=== PATIENT | female | born 1955 | race Caucasian/White ===

== ENCOUNTER → 2018-12-23 | Outpatient (CLI) | payer MEDICARE, OTHER ==
--- NOTE | 2018-12-23 14:29 | Diagnostic Imaging Report ---
Indication: Right shoulder pain 4 views of the right shoulder show no fracture, dislocation or other acute abnormalities. Impression: Negative right shoulder Dictated by: Dictated on workstation # [id number]
== END ==
LOC: RAD FS 14:13
PROVIDERS: ATTEND Nurse Practitioner
DX: M25.511 Pain in right shoulder (principal)
CPT/HCPCS: 73030

== ENCOUNTER 2019-06-19 07:02 | Emergency (ER) | payer MEDICARE, OTHER ==
[~2019-06-19] VITALS: Ht 154.9 cm; Wt 94.2 kg
--- NOTE | 2019-06-19 07:41 | ED General ---
General Stated Complaint: WEAKNESS,DIZZY Source of Information: Patient Exam Limitations: No Limitations History of Present Illness Date Seen by Provider: Jun 19, 2019 Time Seen by Provider: 07:36 Initial Comments Patient complains of dizziness and trouble walking for the past 2 weeks. She actually fell 2 weeks ago and hit her side on the floor. She complains of left rib pain. She has not fallen since. She was more dizzy today. She has been sick for the past week with a cough productive of green sputum. She denies fevers or chills. No headache. Allergies and Home Medications Allergies Coded Allergies: ciprofloxacin (Unverified Adverse Reaction, Unknown, 06/19/19) Patient Home Medication List Home Medication List Reviewed: Yes Review of Systems Review of Systems Constitutional: dizziness; No fever; malaise EENTM: nose congestion Respiratory: cough Cardiovascular: chest pain Gastrointestinal: no symptoms reported Skin: no symptoms reported Psychiatric/Neurological: No Symptoms Reported Hematologic/Lymphatic: No Symptoms Reported All Other Systems Reviewed Negative Unless Noted: Yes Past Yesneim-Ijbthl-Rohhkp Hx Patient Social History Alcohol Use: Denies Use Physical Exam Vital Signs Vital Signs - First Documented 06/19/19 07:10 Temp 37.0 Pulse 103 Resp 18 B/P (MAP) 141/63 (89) Pulse Ox 93 O2 Delivery Room Air Capillary Refill : Height, Weight, BMI Height: '" Weight: lbs. oz. kg; BMI Method: General Appearance: No Apparent Distress, WD/WN, Obese Eyes: Bilateral Eye Normal Inspection, Bilateral Eye PERRL, Bilateral Eye EOMI, Bilateral Eye Other (horizontal nystagmus) HEENT: PERRL/EOMI, Pharynx Normal Neck: Supple Respiratory: Lungs Clear, Normal Breath Sounds Cardiovascular: Regular Rate, Rhythm, No Edema Gastrointestinal: Non Tender, Soft Extremity: Normal Range of Motion Neurologic/Psychiatric: Alert, No Motor/Sensory Deficits, Normal Mood/Affect Skin: Normal Color, Warm/Dry Progress/Results/Core Measures Suspected Sepsis SIRS Temperature: Pulse: Respiratory Rate: Laboratory Tests 06/19/19 07:35: White Blood Count 12.7H Blood Pressure / Mean: Laboratory Tests 06/19/19 07:35: Creatinine 0.59L, Platelet Count 234, Total Bilirubin 0.4 Results/Orders Lab Results Laboratory Tests Test 06/19/19 07:25 06/19/19 07:35 Range/Units Urine Color YELLOW Urine Clarity CLOUDY H Urine pH 7.5 5-9 Urine Specific Crouse 1.020 1.016-1.022 Urine Protein NEGATIVE NEGATIVE Urine Glucose (UA) 3+ H NEGATIVE Urine Ketones TRACE H NEGATIVE Urine Nitrite POSITIVE H NEGATIVE Urine Bilirubin NEGATIVE NEGATIVE Urine Urobilinogen 0.2 NORMAL MG/DL Urine Leukocyte Esterase 2+ H NEGATIVE Urine RBC (Auto) NEGATIVE NEGATIVE Urine RBC NONE /HPF Urine WBC >100 H /HPF Urine Squamous Epithelial Cells RARE /HPF Urine Crystals NONE /LPF Urine Bacteria LARGE H /HPF Urine Casts NONE /LPF Urine Mucus NEGATIVE /LPF Urine Culture Indicated YES White Blood Count 12.7 H 4.3-11.0 10^3/uL Red Blood Count 3.93 L 4.35-5.85 10^6/uL Hemoglobin 12.4 11.5-16.0 G/DL Hematocrit 36 35-52 % Mean Corpuscular Volume 92 80-99 FL Mean Corpuscular Hemoglobin 32 25-34 PG Mean Corpuscular Hemoglobin Concent 34 32-36 G/DL Red Cell Distribution Width 12.2 10.0-14.5 % Platelet Count 234 130-400 10^3/uL Mean Platelet Volume 10.0 7.4-10.4 FL Neutrophils (%) (Auto) 81 H 42-75 % Lymphocytes (%) (Auto) 7 L 12-44 % Monocytes (%) (Auto) 8 0-12 % Eosinophils (%) (Auto) 3 0-10 % Basophils (%) (Auto) 0 0-10 % Neutrophils # (Auto) 10.3 H 1.8-7.8 X 10^3 Lymphocytes # (Auto) 0.9 L 1.0-4.0 X 10^3 Monocytes # (Auto) 1.0 0.0-1.0 X 10^3 Eosinophils # (Auto) 0.3 0.0-0.3 10^3/uL Basophils # (Auto) 0.0 0.0-0.1 10^3/uL Neutrophils % (Manual) 70 % Lymphocytes % (Manual) 8 % Monocytes % (Manual) 6 % Eosinophils % (Manual) 2 % Band Neutrophils 14 % Blood Morphology Comment NORMAL Sodium Level 131 L 135-145 MMOL/L Potassium Level 4.6 3.6-5.0 MMOL/L Chloride Level 93 L 98-107 MMOL/L Carbon Dioxide Level 25 21-32 MMOL/L Anion Gap 13 5-14 MMOL/L Blood Urea Nitrogen 16 7-18 MG/DL Creatinine 0.59 L 0.60-1.30 MG/DL Estimat Glomerular Filtration Rate > 60 BUN/Creatinine Ratio 27 Glucose Level 333 H 70-105 MG/DL Calcium Level 9.9 8.5-10.1 MG/DL Corrected Calcium 9.8 8.5-10.1 MG/DL Magnesium Level 1.6 1.6-2.4 MG/DL Total Bilirubin 0.4 0.1-1.0 MG/DL Aspartate Amino Transf (AST/SGOT) 27 5-34 U/L Alanine Aminotransferase (ALT/SGPT) 32 0-55 U/L Alkaline Phosphatase 98 40-136 U/L Troponin I < 0.30 <0.30 NG/ML Total Protein 7.4 6.4-8.2 GM/DL Albumin 4.1 3.2-4.5 GM/DL My Orders Orders - VY LEHMAN MD Cbc With Automated Diff (06/19/19 07:20) Comprehensive Metabolic Panel (06/19/19 07:20) Magnesium (06/19/19 07:20) Ua Culture If Indicated (06/19/19 07:20) Troponin I (06/19/19 07:20) Ekg Tracing (06/19/19 07:20) Chest 1 View Ap/Pa Only (06/19/19 07:20) Meclizine Tablet (Antivert Tablet) (06/19/19 07:45) Ct Head Wo (06/19/19 07:42) Urine Culture (06/19/19 07:25) Manual Differential (06/19/19 07:35) Ceftriaxone For Iv Use (Rocephin For I (06/19/19 08:45) Insulin (Regular) Human (Humulin R (Per (06/19/19 08:45) Medications Given in ED Current Medications Medications Dose Ordered Sig/Santiago Route Start Time Stop Time Status Last Admin Dose Admin Meclizine HCl 25 mg ONCE ONCE PO 06/19/19 07:45 06/19/19 07:46 DC 06/19/19 08:13 25 MG Vital Signs/I&O 06/19/19 07:10 Temp 37.0 Pulse 103 Resp 18 B/P (MAP) 141/63 (89) Pulse Ox 93 O2 Delivery Room Air Capillary Refill : Departure Impression Primary Impression: Dizziness Additional Impression: UTI (urinary tract infection) Disposition: 01 HOME, SELF-CARE Condition: Stable Departure-Patient Inst. Decision time for Depature: 08:46 Referrals: HANK PAUL MD (PCP/Family) Primary Care Physician Patient Instructions: Urinary Tract Infection, Adult (DC) Add. Discharge Instructions: Drinking fluids. Acetaminophen or Ibuprofen for pain or fever. Take antibiotics as prescribed. See her doctor later this week for follow-up. Scripts Levofloxacin (Levaquin) 500 Mg Tablet 500 MG PO DAILY, #5 TAB Prov: VY LEHMAN MD 06/19/19 VY LEHMAN MD Jun 19, 2019 07:41
[2019-06-19] MEDS ORDERED: MECLIZINE 25 MG (ANTIVERT) TAB PO ONE (07:45)
[2019-06-19 07:57] LABS: CLARITY,URINE CLOUDY; COLOR,URINE YELLOW; GLUCOSE, URINE (UA) 3+ (NEGATIVE); PH,URINE 7.5 (5-9); PROTEIN,URINE NEGATIVE (NEGATIVE)
[2019-06-19 07:58] LABS: BACTERIA,URINE LARGE /HPF; BILIRUBIN,URINE NEGATIVE (NEGATIVE); KETONES,URINE TRACE (NEGATIVE); LEUKOCYTE ESTERASE ,URINE 2+ (NEGATIVE); NITRITE,URINE POSITIVE (NEGATIVE); SQUAMOUS EPITHELIAL CELL,UR RARE /HPF; UROBILINOGEN,URINE 0.2 MG/DL (NORMAL); WBC,URINE >100 /HPF
[2019-06-19 07:59] LABS: HEMATOCRIT 36 % (35-52); HEMOGLOBIN 12.4 G/DL (11.5-16.0); MEAN CORPUSCULAR HEMOGLOBIN 32 PG (25-34); WHITE BLOOD COUNT 12.7 10^3/uL (4.3-11.0)
[2019-06-19 08:00] LABS: BASOPHILS % (AUTO) 0 % (0-10); EOSINOPHILS # (AUTO) 0.3 10^3/uL (0.0-0.3); EOSINOPHILS % (AUTO) 3 % (0-10); LYMPHOCYTES # (AUTO) 0.9 X 10^3 (1.0-4.0); LYMPHOCYTES % (AUTO) 7 % (12-44); MEAN CORPUSCULAR HGB CONC 34 G/DL (32-36); MEAN CORPUSCULAR VOLUME 92 FL (80-99); MONOCYTES % (AUTO) 8 % (0-12); NEUTROPHILS # (AUTO) 10.3 X 10^3 (1.8-7.8); NEUTROPHILS % (AUTO) 81 % (42-75); PLATELET COUNT 234 10^3/uL (130-400); RED CELL DISTRIBUTION WIDTH 12.2 % (10.0-14.5)
[2019-06-19 08:11] LABS: BILIRUBIN,TOTAL 0.4 MG/DL (0.1-1.0); BUN/CREATININE RATIO 27; CALCIUM 9.9 MG/DL (8.5-10.1); CARBON DIOXIDE 25 MMOL/L (21-32); CHLORIDE 93 MMOL/L (98-107); CREATININE SERUM 0.59 MG/DL (0.60-1.30); GFR ESTIMATED > 60; GLUCOSE 333 MG/DL (70-105); MAGNESIUM 1.6 MG/DL (1.6-2.4); POTASSIUM 4.6 MMOL/L (3.6-5.0); SODIUM 131 MMOL/L (135-145)
[2019-06-19 08:12] LABS: ALANINE AMINOTRANSFERASE 32 U/L (0-55); ALBUMIN 4.1 GM/DL (3.2-4.5); ALKALINE PHOSPHATASE 98 U/L (40-136); TOTAL PROTEIN 7.4 GM/DL (6.4-8.2)
[2019-06-19 08:19] LABS: BAND NEUTROPHILS 14 %; NEUTROPHILS % (MANUAL) 70 %
[2019-06-19 08:20] LABS: EOSINOPHILS % (MANUAL) 2 %; LYMPHOCYTES % (MANUAL) 8 %; MONOCYTES % (MANUAL) 6 %; RBC MORPH NORMAL
--- NOTE | 2019-06-19 08:22 | Diagnostic Imaging Report ---
EXAM: CHEST 1 VIEW AP/PA ONLY INDICATION: Dizziness and weakness. COMPARISON: None. FINDINGS: Mild bibasilar atelectasis or infiltrate. Normal heart size with normal central pulmonary vascularity. Calcified aorta. No pleural effusion or pneumothorax. No acute osseous findings. IMPRESSION: Mild bibasilar atelectasis or infiltrate. Remainder unremarkable. Dictated by: Dictated on workstation # [id number]
--- NOTE | 2019-06-19 08:23 | Diagnostic Imaging Report ---
PROCEDURE: CT head without contrast. TECHNIQUE: Multiple contiguous axial images were obtained through the brain without the use of intravenous contrast. Auto Exposure Controls were utilized during the CT exam to meet ALARA standards for radiation dose reduction. INDICATION: Dizziness. Weakness. COMPARISON: None. FINDINGS: Moderate generalized cerebral and cerebellar parenchymal volume loss. No intracranial hemorrhage, mass effect, hydrocephalus or extra-axial fluid collections. No CT evidence of a territorial infarction. Osseous structures are intact. The visualized paranasal sinuses and mastoids are clear. IMPRESSION: No acute intracranial CT findings. Dictated by: Dictated on workstation # [id number]
[2019-06-19] MEDS ORDERED: cefTRIAXone FOR IV USE 2,000 MG in WATER (STERILE) FOR INJECTION 20 ML IV ONE (08:45)
[2019-06-19] MEDS ORDERED: inSUlin (REGULAR) HUMAN 1 UNIT/0.01 ML (CHARGE PER UNIT) SC ONE (08:45)
[2019-06-19] MEDS ORDERED: LEVO500T2 PO (08:47)
[2019-06-19 09:17] VITALS: BP 130/61
== END 2019-06-19 09:17 | disposition home or self-care (01) ==
LOC: EDUNIT# 07:02 → ER FS 07:04
DX: R42 Dizziness and giddiness (principal); N39.0 Urinary tract infection, site not specified; Z88.1 Allergy status to other antibiotic agents; W01.198A Fall on same level from slipping, tripping and stumbling with subsequent striking against other object, initial encounter
CPT/HCPCS: 36415; 70450; 71045; 80053; 81000; 83735; 84484; 85007; 85027; 87077; 87088; 87186; 93005

== ENCOUNTER → 2020-01-12 | Outpatient (CLI) | payer MEDICARE ==
[~2020-01-12] MED LIST: LEVO500T2 PO
--- NOTE | 2020-01-12 10:26 | Diagnostic Imaging Report ---
INDICATION: Right knee pain. COMPARISON: None available. TECHNIQUE: Three radiograph of the right knee dated January 12, 2020. FINDINGS: No acute fracture or dislocation. No destructive osseous process. Moderate medial joint space narrowing. Mild tricompartmental osteophytosis. No significant joint effusion. No suspicious radiopaque foreign body. IMPRESSION: No acute osseous abnormality with hpya-hj-uxtewcoo degenerative changes. Dictated by: Dictated on workstation # [id number]
== END ==
LOC: RAD FS 09:49
PROVIDERS: ATTEND Nurse Practitioner
DX: M17.11 Unilateral primary osteoarthritis, right knee (principal)
CPT/HCPCS: 73562

== ENCOUNTER 2020-06-28 15:42 | Emergency (ER) | payer MEDICARE ==
[~2020-06-28] VITALS: Ht 157 cm; Wt 110.0 kg
[2020-06-28] MEDS ORDERED: NS IV 1000 ML 1,000 ML IV SCH (16:00)
--- NOTE | 2020-06-28 16:03 | ED GI ---
General Stated Complaint: NO BM Source of Information: Patient Exam Limitations: No Limitations History of Present Illness Date Seen by Provider: Jun 28, 2020 Time Seen by Provider: 15:50 Initial Comments The patient is a pleasant 65-year-old female who presents for evaluation of constipation over the last 2 weeks. She states that she normally has a bowel movement every 3 days or so. She tried Dulcolax and MiraLAX and a Fleet enema at home with no relief. She denies any nausea, vomiting, or any significant abdominal discomfort. She is alert and oriented 4, calm, and appears to be in no distress. She denies fevers or chills, chest pain or shortness of breath, rectal pain, urinary complaints, dizziness or syncope. She denies any history of abdominal surgeries. Timing/Duration: Other (2 weeks) Severity/Quality: Moderate Location: Generalized Abdomen (mild cramping and rectal fullness) Associated Symptoms: Denies Symptoms Allergies and Home Medications Allergies Coded Allergies: ciprofloxacin (Unverified Adverse Reaction, Unknown, 06/19/19) Home Medications Levofloxacin 500 Mg Tablet, 500 MG PO DAILY Prescribed by: VY LEHMAN on 06/19/19 0807 Patient Home Medication List Home Medication List Reviewed: Yes Review of Systems Review of Systems Constitutional: no symptoms reported EENTM: No Symptoms Reported Respiratory: No Symptoms Reported Cardiovascular: No Symptoms Reported Gastrointestinal: Abdominal Pain, Constipated Genitourinary: No Symptoms Reported Musculoskeletal: no symptoms reported Skin: no symptoms reported Psychiatric/Neurological: No Symptoms Reported Endocrine: No Symptoms Reported Hematologic/Lymphatic: No Symptoms Reported All Other Systems Reviewed Negative Unless Noted: Yes Past Ixrsnnz-Aewmak-Jtahue Hx Past Med/Social Hx: Reviewed Nursing Past Med/Soc Hx Patient Social History Type Used: Cigarettes Former Smoker, Quit: Oct 05, 2006 2nd Hand Smoke Exposure: No Recent Foreign Travel: No Contact w/Someone Who Travel: No Recent Hopitalizations: No Immunizations Up To Date Tetanus Booster (TDap): Unknown Date of Pneumonia Vaccine: Jun 17, 2019 Date of Influenza Vaccine: Jun 17, 2019 Seasonal Allergies Seasonal Allergies: Yes Past Medical History Surgeries: Yes (Lithotripsy, Colonoscopy) Hysterectomy Respiratory: No Cardiac: Yes (Paroxysmal supraventricular tachycardia) High Cholesterol, Hypertension, Irregular Heartbeat 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 oz. kg; 39.00 BMI Method: General Appearance: WD/WN, no apparent distress HEENT: PERRL/EOMI, pharynx normal Neck: non-tender, normal inspection Respiratory: lungs clear, no respiratory distress, no accessory muscle use Cardiovascular: regular rate, rhythm, no edema, no JVD, no murmur Gastrointestinal: normal bowel sounds, non tender, soft, no pulsatile mass Extremities: non-tender, no pedal edema Neurologic/Psychiatric: no motor/sensory deficits, alert, normal mood/affect, oriented x 3 Skin: normal color, warm/dry Progress/Results/Core Measures Results/Orders Lab Results Laboratory Tests Test 06/28/20 16:02 Range/Units White Blood Count 8.0 4.3-11.0 10^3/uL Red Blood Count 4.16 L 4.35-5.85 10^6/uL Hemoglobin 13.1 11.5-16.0 G/DL Hematocrit 39 35-52 % Mean Corpuscular Volume 95 80-99 FL Mean Corpuscular Hemoglobin 31 25-34 PG Mean Corpuscular Hemoglobin Concent 33 32-36 G/DL Red Cell Distribution Width 13.7 10.0-14.5 % Platelet Count 224 130-400 10^3/uL Mean Platelet Volume 9.5 7.4-10.4 FL Neutrophils (%) (Auto) 66 42-75 % Lymphocytes (%) (Auto) 19 12-44 % Monocytes (%) (Auto) 10 0-12 % Eosinophils (%) (Auto) 4 0-10 % Basophils (%) (Auto) 1 0-10 % Neutrophils # (Auto) 5.3 1.8-7.8 X 10^3 Lymphocytes # (Auto) 1.5 1.0-4.0 X 10^3 Monocytes # (Auto) 0.8 0.0-1.0 X 10^3 Eosinophils # (Auto) 0.3 0.0-0.3 10^3/uL Basophils # (Auto) 0.0 0.0-0.1 10^3/uL Sodium Level 137 135-145 MMOL/L Potassium Level 4.1 3.6-5.0 MMOL/L Chloride Level 101 98-107 MMOL/L Carbon Dioxide Level 20 L 21-32 MMOL/L Anion Gap 16 H 5-14 MMOL/L Blood Urea Nitrogen 11 7-18 MG/DL Creatinine 0.65 0.60-1.30 MG/DL Estimat Glomerular Filtration Rate > 60 BUN/Creatinine Ratio 17 Glucose Level 230 H 70-105 MG/DL Calcium Level 10.4 H 8.5-10.1 MG/DL Corrected Calcium 10.2 H 8.5-10.1 MG/DL Total Bilirubin 0.2 0.1-1.0 MG/DL Aspartate Amino Transf (AST/SGOT) 39 H 5-34 U/L Alanine Aminotransferase (ALT/SGPT) 41 0-55 U/L Alkaline Phosphatase 80 40-136 U/L Total Protein 7.6 6.4-8.2 GM/DL Albumin 4.3 3.2-4.5 GM/DL My Orders Orders - JESE SWANN DO Cbc With Automated Diff (06/28/20 15:46) Comprehensive Metabolic Panel (06/28/20 15:46) Ed Iv/Invasive Line Start (06/28/20 15:46) Abdomen (Kub) 1 View (06/28/20 15:54) Ns Iv 1000 Ml (Sodium Chloride 0.9%) (06/28/20 16:00) Magnesium Citrate Oral Soln (Citrate Of (06/28/20 16:30) Na Phos/Na Biphos Enema (Fleet Enema Miles (06/28/20 16:30) Vital Signs/I&O 06/28/20 16:07 Temp 36.0 Pulse 101 Resp 18 B/P (MAP) 152/64 (93) Pulse Ox 96 O2 Delivery Room Air Progress Progress Note : Progress Note @6377 - after receiving the enema the patient was able to have a large bowel movement and now is feeling much better. Advised the patient that her labs showed a slightly elevated calcium level and that this is important to be followed up with her primary care doctor and needs to be repeated. Advised the patient to follow up with her PCP within the next 2-3 days and to return to the emergency Department immediately for new or worsening symptoms. The patient expresses verbal understanding and agreement with the plan and is stable for discharge at this time. Diagnostic Imaging Diagonstic Imaging: Xray Comments [facility] the [employer] [facility] [place], [place] NAME: REI CALDERA [facility] REC#: [id number] PT STATUS: REG ER : 1955 PHYSICIAN: JESE SWANN DO ADMIT DATE: 06/28/20/ER FS Draft Date of Exam:06/28/20 ABDOMEN (KUB) 1 VIEW INDICATION: Obstipation COMPARISON: None FINDINGS: 2 frontal Views the abdomen were obtained and demonstrate nondistended loops of small bowel. There is no large collection of free peritoneal air. Moderate air and stool are seen scattered throughout the colon. No unexpected extraosseous calcifications or radiopaque foreign bodies are seen. Bony structures show no gross acute abnormalities. IMPRESSION: 1. Nonobstructed small bowel gas pattern. 2. Moderate colonic air and stool. Please correlate for constipation Dictated on workstation # [id number] Dict: 06/28/20 1619 Trans: 06/28/20 1624 CV [id number] Interpreted by: LESLIE LEIVA MD Electronically signed by: Departure Impression Primary Impression: Constipation Additional Impression: Hypercalcemia Disposition: 01 HOME, SELF-CARE Condition: Stable Departure-Patient Inst. Decision time for Depature: 16:48 Referrals: SELFHANK MD (PCP/Family) Primary Care Physician Patient Instructions: Constipation, Adult (DC), Hypercalcemia (DC) Add. Discharge Instructions: As discussed your calcium level was slightly elevated today and it is important that he follow-up with your doctor to have this level repeated to make sure that it is coming down. Follow-up with your doctor in the next 2-3 days. Return to the emergency Department immediately for new or worsening symptoms. Continue to take the stool softening medications you have been taking recently to help prevent constipation future. Also continue to drink plenty of water to stay well-hydrated. Discuss with your doctor whether you should be taking trazodone as this is a new medication which may be contributing to your constipation. JESE SWANN DO Jun 28, 2020 16:03
[2020-06-28 16:09] LABS: HEMOGLOBIN 13.1 G/DL (11.5-16.0); MEAN CORPUSCULAR HEMOGLOBIN 31 PG (25-34)
[2020-06-28 16:10] LABS: BASOPHILS % (AUTO) 1 % (0-10); EOSINOPHILS # (AUTO) 0.3 10^3/uL (0.0-0.3); EOSINOPHILS % (AUTO) 4 % (0-10); HEMATOCRIT 39 % (35-52); LYMPHOCYTES # (AUTO) 1.5 X 10^3 (1.0-4.0); LYMPHOCYTES % (AUTO) 19 % (12-44); MEAN CORPUSCULAR HGB CONC 33 G/DL (32-36); MEAN CORPUSCULAR VOLUME 95 FL (80-99); MEAN PLATELET VOLUME 9.5 FL (7.4-10.4); MONOCYTES # (AUTO) 0.8 X 10^3 (0.0-1.0); MONOCYTES % (AUTO) 10 % (0-12); NEUTROPHILS # (AUTO) 5.3 X 10^3 (1.8-7.8); NEUTROPHILS % (AUTO) 66 % (42-75); PLATELET COUNT 224 10^3/uL (130-400)
--- NOTE | 2020-06-28 16:24 | Diagnostic Imaging Report ---
INDICATION: Obstipation COMPARISON: None FINDINGS: 2 frontal Views the abdomen were obtained and demonstrate nondistended loops of small bowel. There is no large collection of free peritoneal air. Moderate air and stool are seen scattered throughout the colon. No unexpected extraosseous calcifications or radiopaque foreign bodies are seen. Bony structures show no gross acute abnormalities. IMPRESSION: 1. Nonobstructed small bowel gas pattern. 2. Moderate colonic air and stool. Please correlate for constipation Dictated by: Dictated on workstation # [id number]
[2020-06-28] MEDS ORDERED: polyethylene glycoL POWDER 17 GM (MIRALAX) PACK PO ONE (16:30)
[2020-06-28] MEDS ORDERED: MAGNESIUM CITRATE 300 ML BTL PO ONE (16:30)
[2020-06-28] MEDS ORDERED: FLEET ENEMA ADULT 1 EA BTL PR ONE (16:30)
[2020-06-28 16:33] LABS: ALANINE AMINOTRANSFERASE 41 U/L (0-55); ALBUMIN 4.3 GM/DL (3.2-4.5); ALKALINE PHOSPHATASE 80 U/L (40-136); BILIRUBIN,TOTAL 0.2 MG/DL (0.1-1.0); BUN/CREATININE RATIO 17; CALCIUM 10.4 MG/DL (8.5-10.1); CARBON DIOXIDE 20 MMOL/L (21-32); CHLORIDE 101 MMOL/L (98-107); CREATININE SERUM 0.65 MG/DL (0.60-1.30); GFR ESTIMATED > 60; GLUCOSE 230 MG/DL (70-105); POTASSIUM 4.1 MMOL/L (3.6-5.0); SODIUM 137 MMOL/L (135-145); TOTAL PROTEIN 7.6 GM/DL (6.4-8.2)
[2020-06-28 17:01] VITALS: BP 138/62
== END 2020-06-28 17:05 | disposition home or self-care (01) ==
LOC: EDUNIT# 15:42 → ER FS 15:43
DX: K59.00 Constipation, unspecified (principal); E83.52 Hypercalcemia; I10 Essential (primary) hypertension; Z88.1 Allergy status to other antibiotic agents; Z87.891 Personal history of nicotine dependence
CPT/HCPCS: 36415; 74018; 80053; 85025

== ENCOUNTER 2021-01-15 11:01 | Emergency (ER) | payer MEDICARE ==
[~2021-01-15] VITALS: Ht 157.4 cm; Wt 110.0 kg
[2021-01-15 11:01] VITALS: BP 142/95
--- NOTE | 2021-01-15 11:10 | ED Fall/Injury ---
General Stated Complaint: FALL Source: patient, EMS History of Present Illness Date Seen by Provider: Jan 15, 2021 Time Seen by Provider: 11:05 Initial Comments 65-year-old female presents via EMS after a fall in her yard. Patient states she was planting taylor and fell down a hill rolling and landing on her right side. She complains of right lower extremity pain including her right hip, right shoulder and right neck pain. Denies any head injury, loss of consciousness. Denies numbness weakness or paresthesia. Allergies and Home Medications Allergies Coded Allergies: ciprofloxacin (Unverified Adverse Reaction, Unknown, 06/19/19) Home Medications Hydrocodone/Acetaminophen 1 Each Tablet, 1 EACH PO Q4H Prescribed by: CHANDRA KEY on 01/15/21 1140 Levofloxacin 500 Mg Tablet, 500 MG PO DAILY Prescribed by: VY LEHMAN on 06/19/19 0822 Patient Home Medication List Home Medication List Reviewed: Yes Review of Systems Review of Systems Constitutional: No dizziness, No fever, No malaise, No weakness Eyes: No Symptoms Reported Ears, Nose, Mouth, Throat: no symptoms reported Respiratory: No cough, No short of breath Cardiovascular: No chest pain, No palpitations, No syncope Gastrointestinal: No abdominal pain, No nausea, No vomiting Musculoskeletal: see HPI, joint pain, muscle pain, neck pain Skin: other (scrape to R knee) Psychiatric/Neurological: Denies Headache, Denies Numbness, Denies Paresthesia, Denies Tremors, Denies Weakness Past Qonhzim-Mwjuww-Raefbr Hx Past Med/Social Hx: Reviewed Nursing Past Med/Soc Hx Patient Social History Type Used: Cigarettes Former Smoker, Quit: Oct 05, 2006 2nd Hand Smoke Exposure: No Recent Hopitalizations: No Immunizations Up To Date Tetanus Booster (TDap): Unknown Date of Pneumonia Vaccine: Jun 17, 2019 Date of Influenza Vaccine: Jun 17, 2019 Seasonal Allergies Seasonal Allergies: Yes Past Medical History Surgeries: Yes (Lithotripsy, Colonoscopy) Hysterectomy Respiratory: No Cardiac: Yes (Paroxysmal supraventricular tachycardia) High Cholesterol, Hypertension, Irregular Heartbeat Neurological: No [employer] History: Hysterectomy Genitourinary: Yes (acute cystitis) Kidney Stones Musculoskeletal: Yes (Carpal tunnel syndrome, Osteoarthritis, Left rotator cuff tear) Diabetes, Insulin dep, Hypothyroidsim HEENT: Yes Glaucoma Hearing Impairment: Denies Anxiety, Bipolar, Depression Integumentary: No Blood Disorders: No Physical Exam Vital Signs Vital Signs - First Documented 01/15/21 11:01 Temp 36.3 Pulse 92 Resp 16 B/P (MAP) 142/95 (111) Pulse Ox 93 O2 Delivery Room Air Capillary Refill : Height, Weight, BMI Height: '" Weight: lbs. oz. kg; 44.00 BMI Method: General Appearance: WD/WN, no apparent distress HEENT: PERRL/EOMI, normal ENT inspection, TMs normal, pharynx normal Neck: full range of motion, supple, tender lateral (right lower), tender midline (lower cervical only) Cardiovascular: regular rate, rhythm, no edema, no JVD Respiratory: chest non-tender, lungs clear, normal breath sounds, no respiratory distress, no accessory muscle use Gastrointestinal: non tender, soft, no organomegaly, no pulsatile mass Back: normal inspection, no CVA tenderness, no vertebral tenderness Extremities: normal range of motion, normal inspection, normal capillary refill, other (tenderness R shoulder and R hip- diffuse) Neurologic/Psychiatric: no motor/sensory deficits, alert, normal mood/affect, oriented x 3 Skin: normal color, warm/dry Progress/Results/Core Measures Results/Orders My Orders Orders - CHANDRA KEY DO Ct Cervical Spine Wo (01/15/21 11:06) Shoulder 3 View Right (01/15/21 11:06) Pelvis With Right Hip 2-3 View (01/15/21 11:06) Vital Signs/I&O 01/15/21 11:01 Temp 36.3 Pulse 92 Resp 16 B/P (MAP) 142/95 (111) Pulse Ox 93 O2 Delivery Room Air Progress Progress Note : Progress Note Patient was able to stand and bear weight and change positions for x-rays. Functional range of motion of upper and lower extremities with some limitation secondary to what appears to be mild pain. Discussed pain management and patient declines any prescription pain medicine, states "I will just take Tylenol". Advised follow-up with her primary care provider, Dr. Max in 1 week. Departure Impression Primary Impression: Fall from ground level Additional Impressions: Shoulder contusion Qualified Codes: S40.011A - Contusion of right shoulder, initial encounter Contusion of hip, right Qualified Codes: S70.01XA - Contusion of right hip, initial encounter Cervical muscle strain Qualified Codes: S16.1XXA - Strain of muscle, fascia and tendon at neck level, initial encounter Disposition: 01 HOME, SELF-CARE Condition: Stable Departure-Patient Inst. Decision time for Depature: 11:38 Referrals: HANK MAX MD (PCP/Family) Primary Care Physician Patient Instructions: Shoulder Pain ED, Cervical Muscle Strain (DC) Add. Discharge Instructions: Follow up with Dr Max in 1 week , sooner if not improving. Scripts Hydrocodone/Acetaminophen (Hydrocodone-Acetamin 5-325 mg) 1 Each Tablet 1 EACH PO Q4H for Abdominal Pain, #20 TAB Prov: CHANDRA KEY DO 01/15/21 CHANDRA KEY DO Jan 15, 2021 11:10
--- NOTE | 2021-01-15 11:36 | Diagnostic Imaging Report ---
INDICATION: Fall with right shoulder pain. EXAMINATION: AP, oblique, and transscapular views of the right shoulder are obtained. FINDINGS: No fracture or dislocation is seen. There is no acute bony abnormality. There are moderate degenerative changes in the glenohumeral joint. There are prominent degenerative changes of the AC joint with inferior spurring. IMPRESSION: Degenerative findings of the right shoulder as above with no acute abnormality. Dictated by: Dictated on workstation # [id number]
--- NOTE | 2021-01-15 11:38 | Diagnostic Imaging Report ---
INDICATION: Fall with pelvic pain and right hip pain AP pelvis and AP oblique views of the right hip are obtained No fracture or acute bony abnormality seen. There are moderate degenerative changes of the hip joint on both sides. There is no lytic or blastic lesion. IMPRESSION: Degenerative findings of both hips. No acute fracture visualized. Dictated by: Dictated on workstation # [id number]
[2021-01-15] MEDS ORDERED: ACHD5005 PO (11:40)
--- NOTE | 2021-01-15 11:40 | Diagnostic Imaging Report ---
PROCEDURE: CT cervical spine without contrast. TECHNIQUE: Multiple contiguous axial images were obtained through the cervical spine without the use of intravenous contrast. Sagittal and coronal reformations were then performed. Auto Exposure Controls were utilized during the CT exam to meet ALARA standards for radiation dose reduction. INDICATION: Fall. Trauma. COMPARISON: None FINDINGS: Static alignment of the cervical spine is maintained. There is no significant anteroretrolisthesis. There is no evidence of jumped facets. Vertebral body heights are maintained. There is no acute fracture. No bony fragments are seen within the spinal canal. There are moderate multilevel degenerative changes consistent with intervertebral disc height loss with endplate osteophyte formations. There is also mild multilevel facet arthropathy. Pre and paravertebral soft tissue structures are unremarkable. Note is made of calcified carotid atherosclerosis. Included portions lung apices are clear. IMPRESSION: 1. No acute fracture or dislocation cervical spine. 2. Moderate multilevel degenerative changes. Dictated by: Dictated on workstation # [id number]
== END 2021-01-15 11:45 | disposition home or self-care (01) ==
LOC: EDUNIT# 11:01 → ER FS 11:02
DX: S16.1XXA Strain of muscle, fascia and tendon at neck level, initial encounter (principal); S40.011A Contusion of right shoulder, initial encounter; S70.01XA Contusion of right hip, initial encounter; I10 Essential (primary) hypertension; Z87.891 Personal history of nicotine dependence; Z88.1 Allergy status to other antibiotic agents; W18.30XA Fall on same level, unspecified, initial encounter; Y92.017 Garden or yard in single-family (private) house as the place of occurrence of the external cause
CPT/HCPCS: 72125; 73030; 73502

== ENCOUNTER 2021-05-14 11:22 | Emergency (ER) | payer MEDICARE ==
[~2021-05-14] VITALS: Ht 157.4 cm; Wt 110.0 kg
[~2021-05-14 11:22] MED LIST changes: +ACHD5005 PO
[2021-05-14 11:28] VITALS: BP 148/83
--- NOTE | 2021-05-14 11:37 | ED Fall/Injury ---
General Chief Complaint: Lower Extremity Stated Complaint: FALL; HIP INJ Source: patient, EMS History of Present Illness Date Seen by Provider: May 14, 2021 Time Seen by Provider: 11:22 Initial Comments 66-year-old female presenting with EMS from [facility] after falling to her knees. She denies any her head or losing consciousness. She has chronic pain with the right knee and is going to see Dr. Angel with [facility] states soon about this. However since falling she has pain that is increased in the knee as well as in the right hip. She had some mild pain in the right elbow no loss of movement and no numbness or tingling. She states she is diabetic and checked her sugar just before EMS brought her here and it was 171. She has not been able to stand or get up after the fall due to pain in her right leg. She has increased pain in the right hip with any movement. On arrival to the ED sitting on the cot she is comfortable and denies needing any medicine before imaging. Location Injury Occurred: [facility] Occurred: just prior to arrival Severity: moderate Injuries/Pain Location: lower extremity (right knee and hip) Context: unknown Loss of Consciousness: no loss of consciousness Modifying Factors: Worse With Movement Associated Symptoms (Fall): No Abdominal Pain, No Chest Pain, No Confusion, No Dizziness, No Headache, No Lightheadedness, No Muscle Spasms, No Nausea/Vomiting, No Neck Pain, No Ringing in Ears, No Seizures, No Shortness of Air, No Slurred Speech, No Vision Changes Allergies and Home Medications Allergies Coded Allergies: ciprofloxacin (Unverified Adverse Reaction, Unknown, 06/19/19) Home Medications Hydrocodone/Acetaminophen 1 Each Tablet, 1 EACH PO Q4H Prescribed by: CHANDRA KEY on 01/15/21 1140 Levofloxacin 500 Mg Tablet, 500 MG PO DAILY Prescribed by: VY LEHMAN on 06/19/19 0847 Patient Home Medication List Home Medication List Reviewed: Yes Review of Systems Review of Systems Constitutional: no symptoms reported Eyes: No Symptoms Reported Ears, Nose, Mouth, Throat: no symptoms reported Respiratory: no symptoms reported Cardiovascular: no symptoms reported Gastrointestinal: no symptoms reported Genitourinary: no symptoms reported Musculoskeletal: see HPI Skin: change in color (abrasion and bruising to right knee) Psychiatric/Neurological: Denies Headache, Denies Numbness, Denies Tingling Past Ffabxjz-Veutfc-Slqjij Hx Patient Social History Tobacco Use?: No Smoking Status: Former Smoker (quit over 20 years ago) Immunizations Up To Date Tetanus Booster (TDap): Unknown Seasonal Allergies Seasonal Allergies: Yes Past Medical History Surgeries: Yes (Lithotripsy, Colonoscopy) Hysterectomy Respiratory: No Cardiac: Yes (Paroxysmal supraventricular tachycardia) High Cholesterol, Hypertension, Irregular Heartbeat 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 oz. kg; 44.00 BMI Method: General Appearance: WD/WN, no apparent distress HEENT: PERRL/EOMI, pharynx normal Neck: non-tender, full range of motion, supple, normal inspection Cardiovascular: normal peripheral pulses, regular rate, rhythm Respiratory: chest non-tender, lungs clear, normal breath sounds Gastrointestinal: normal bowel sounds, soft, no pulsatile mass Extremities: normal capillary refill, pelvis stable, other (pain to palpation of right knee and with movement. 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, no motor/sensory deficits, alert, oriented x 3 Skin: warm/dry, ecchymosis (slight bruise and abrasion to right knee) Юлия Coma Score Best Eye Response: (4) Open Spontaneously Best Verbal Response: (5) Oriented Best Motor Response: (6) Obeys Commands Юлия Total: 15 Progress/Results/Core Measures Results/Orders My Orders Orders - CHILO GILL MD Femur 2 View Right (05/14/21 11:30) Pelvis With Right Hip 2-3 View (05/14/21 11:30) Kobi Bandage (05/14/21 12:20) Vital Signs/I&O 05/14/21 11:28 Temp 37.0 Pulse 106 Resp 18 B/P (MAP) 148/83 (104) Pulse Ox 94 O2 Delivery Room Air Progress Progress Note #1: Progress Note Patient denied needing any pain medicine prior to imaging. Will order x-rays of the right femur, pelvis and hip. Progress Note #2: Progress Note no fracture or dislocation on imaging. will place kobi bandage and discharge to home. she is to see Dr. Angel on this week. Use Cane for assistance with ambulation. Pt refused stronger pain medicine and states she will continue on Aleve (Naproxen) Diagnostic Imaging Diagonstic Imaging: Xray Plain Films/CT/US/NM/MRI: pelvis, hip Comments [facility] [place] NAME: VERENICEREI L [facility] REC#: [id number] PT STATUS: REG ER : 1955 PHYSICIAN: CHILO GILL MD ADMIT DATE: 05/14/21/ER FS Draft Date of Exam:05/14/21 PELVIS WITH RIGHT HIP 2-3 VIEW INDICATION: Right hip pain and leg pain. COMPARISON: 01/15/2021. FINDINGS: Single view of the pelvis and 2 views right hip demonstrates stable degenerative joint disease of both hips. There is no fracture or dislocation. No osseous lesion. IMPRESSION: No fracture identified. Dictated on workstation # [id number] Dict: 05/14/21 1203 Trans: 05/14/21 [facility]7 [id number] Interpreted by: DARON YU Electronically signed by: Reviewed: Reviewed by Sd Diagonstic Imaging: Xray Plain Films/CT/US/NM/MRI: femur Comments [facility] [place], [place] NAME: VERENICEREI L [facility] REC#: [id number] PT STATUS: REG ER : 1955 PHYSICIAN: CHILO GILL MD ADMIT DATE: 05/14/21/ER FS Draft Date of Exam:05/14/21 FEMUR 2 VIEW RIGHT INDICATION: Fall. Right leg pain COMPARISON: None. FINDINGS: 4 views of the right femur demonstrate no fracture or dislocation. No osseous lesion is seen. IMPRESSION: No fracture identified. Dictated on workstation # [id number] Dict: 05/14/21 1200 Trans: 05/14/21 1207 [facility] [id number] Interpreted by: DARON YU Electronically signed by: Reviewed: Reviewed by Me Departure Impression Primary Impression: Contusion of right knee, initial encounter Additional Impressions: Fall from standing Qualified Codes: W19.XXXA - Unspecified fall, initial encounter Acute right hip pain Contusion of right elbow, initial encounter Disposition: HOME, SELF-CARE Condition: Stable Departure-Patient Inst. Decision time for Depature: 12:23 Referrals: LISA ANGEL MD SELF,HNAK SORTO (PCP/Family) Primary Care Physician Patient Instructions: Hip Pain ED, Knee Pain ED, Minor Contusion ED, Preventing Falls ED Add. Discharge Instructions: Use kobi bandage for compression and support for your right knee. May use ice 20-30 minutes every few hours as needed for pain and swelling. Continue with your Aleve for pain. Check with Dr. Angel as scheduled on about your knee and if still having pain in hip you could check with him about that too. Use cane or walker to help with walking and provide added stability to help prevent falls All discharge instructions reviewed with patient and/or family. Voiced understanding. CHILO GILL MD May 14, 2021 11:37
--- NOTE | 2021-05-14 12:07 | Diagnostic Imaging Report ---
INDICATION: Right hip pain and leg pain. COMPARISON: 01/15/2021. FINDINGS: Single view of the pelvis and 2 views right hip demonstrates stable degenerative joint disease of both hips. There is no fracture or dislocation. No osseous lesion. IMPRESSION: No fracture identified. Dictated by: Dictated on workstation # [id number]
--- NOTE | 2021-05-14 12:07 | Diagnostic Imaging Report ---
INDICATION: Fall. Right leg pain COMPARISON: None. FINDINGS: 4 views of the right femur demonstrate no fracture or dislocation. No osseous lesion is seen. IMPRESSION: No fracture identified. Dictated by: Dictated on workstation # [id number]
== END 2021-05-14 12:27 | disposition home or self-care (01) ==
LOC: EDUNIT# 11:22 → ER FS 11:24
DX: S80.01XA Contusion of right knee, initial encounter (principal); S50.01XA Contusion of right elbow, initial encounter; M25.551 Pain in right hip; I10 Essential (primary) hypertension; E11.9 Type 2 diabetes mellitus without complications; Z87.891 Personal history of nicotine dependence; W18.30XA Fall on same level, unspecified, initial encounter
CPT/HCPCS: 73502; 73552

== ENCOUNTER → 2021-06-06 | Outpatient (CLI) | payer MEDICARE | LOC: ORTHO 15:14 | PROVIDERS: ATTEND Orthopaedic Surgery | DX: M17.0 Bilateral primary osteoarthritis of knee (principal) | CPT/HCPCS: 99203 ==

== ENCOUNTER 2021-12-04 22:40 | Emergency (ER) | payer MEDICARE ==
[~2021-12-04] VITALS: Ht 157.4 cm; Wt 110.0 kg
[2021-12-04] MEDS ORDERED: NS IV 1000 ML 1,000 ML IV SCH (23:00)
[2021-12-04] MEDS ORDERED: RT-ALBUTEROL HFA 8.5 GM INHALER IH STA (23:02)
--- NOTE | 2021-12-04 23:09 | ED General ---
General Stated Complaint: SOA,COUGHING BLOOD Source of Information: Patient History of Present Illness Date Seen by Provider: Dec 04, 2021 Time Seen by Provider: 22:42 Initial Comments 66 yo female presenting with complaint of cough x 2 days. She has post tussive emesis as well. she has been coughing to the point that she has seen traces of blood in her mucus and emesis. She states she went to Urgent Care Sunday 12/03 and they tested her for Influenza and Covid and they were both negative. She was prescribed generic Zyrtec and Nasal Steroid spray. She states that was not helping her. Rather than go to clinic or check with her regular provider she presents tonight to the ED after having symptoms continue all day long. Nothing it different or worse for her tonight compared to the last 2 days. She feels that this started after being at the [facility] the [facility] and staying with family that had a cat, and she is allergic to cats. Timing/Duration: 1-2 Days Severity: Moderate Associated Systoms: Chest Pain (sore chest wall from coughing), Cough; No Diaphoresis, No Fever/Chills, No Headaches, No Loss of Appetite, No Malaise, No Nausea/Vomiting, No Rash, No Seizure; Shortness of Air; No Syncope; Other (post tussive emesis from coughing to the point she gags and then vomits) Allergies and Home Medications Allergies Coded Allergies: ciprofloxacin (Unverified Adverse Reaction, Unknown, 06/19/19) Patient Home Medication List Home Medication List Reviewed: Yes Doxycycline Hyclate (Doxycycline Hyclate) 100 Mg Tablet, 100 MG PO BID Prescribed by: CHILO GILL on 12/05/21 0055 Promethazine HCl/Codeine (Promethazine-Codeine Solution) 473 Ml Syrup, 5 ML PO Q4H PRN for COUGH Prescribed by: CHILO GILL on 12/05/21 0058 Discontinued Medications Hydrocodone/Acetaminophen (Hydrocodone-Acetamin 5-325 mg) 1 Each Tablet, 1 EACH PO Q4H Prescribed by: CHANDRA KEY on 01/15/21 1140 Levofloxacin (Levaquin) 500 Mg Tablet, 500 MG PO DAILY Prescribed by: VY LEHMAN on 06/19/19 0847 Review of Systems Review of Systems Constitutional: No chills, No fever; malaise EENTM: hoarseness, nose congestion Respiratory: cough, dyspnea on exertion, hemoptysis, short of breath; No stridor; wheezing Cardiovascular: see HPI Gastrointestinal: see HPI Genitourinary: no symptoms reported Musculoskeletal: no symptoms reported Skin: No rash Psychiatric/Neurological: No Symptoms Reported Past Zcmmkwz-Pabqxs-Qbsinj Hx Patient Social History Tobacco Use?: No Smoking Status: Former Smoker Immunizations Up To Date Tetanus Booster (TDap): Unknown Seasonal Allergies Seasonal Allergies: Yes Past Medical History Surgery/Hospitalization HX: DM Insulin Dependent, HTN, Bipolar, Hypercholesterolemia, Hypothyroid Surgeries: Yes (Lithotripsy, Colonoscopy) Hysterectomy Respiratory: No Cardiac: Yes (Paroxysmal supraventricular tachycardia) High Cholesterol, Hypertension, Irregular Heartbeat 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 oz. kg; 44.00 BMI Method: General Appearance: Obese HEENT: Moist Mucous Membranes, Pharyngeal Erythema; No Photophobia, No Tonsillar Exudate Neck: Full Range of Motion, Normal Inspection, Non Tender, Supple Respiratory: Lungs Clear, Normal Breath Sounds, No Accessory Muscle Use, No Respiratory Distress; No Rhonci, No Stridor, No Wheezing; Other (tender to chest wall) Cardiovascular: Regular Rate, Rhythm, Normal Peripheral Pulses Gastrointestinal: Normal Bowel Sounds, No Pulsatile Mass, Non Tender, Soft Rectal: Deferred Extremity: Normal Capillary Refill, Normal Inspection, No Pedal Edema Neurologic/Psychiatric: Alert, Oriented x3, recharger II-XII Norm as Tested Skin: Normal Color, Warm/Dry Focused Exam Lactate Level 12/04/21 23:20: Lactic Acid Level 1.15 Lactic Acid Level Laboratory Tests Test 12/04/21 23:20 Lactic Acid Level 1.15 MMOL/L (0.50-2.00) Progress/Results/Core Measures Suspected Sepsis SIRS Temperature: Pulse: Respiratory Rate: Laboratory Tests 12/04/21 23:20: White Blood Count 8.8 Blood Pressure / Mean: 12/04/21 23:20: Lactic Acid Level 1.15 Laboratory Tests 12/04/21 23:20: Creatinine 0.68, INR Comment 0.9, Platelet Count 219, Total Bilirubin 0.3 Results/Orders Lab Results Laboratory Tests Test 12/04/21 23:20 12/05/21 00:05 Range/Units White Blood Count 8.8 4.3-11.0 10^3/uL Red Blood Count 3.60 L 3.80-5.11 10^6/uL Hemoglobin 11.3 L 11.5-16.0 g/dL Hematocrit 34 L 35-52 % Mean Corpuscular Volume 93 80-99 fL Mean Corpuscular Hemoglobin 31 25-34 pg Mean Corpuscular Hemoglobin Concent 34 32-36 g/dL Red Cell Distribution Width 12.9 10.0-14.5 % Platelet Count 219 130-400 10^3/uL Mean Platelet Volume 9.6 9.0-12.2 fL Immature Granulocyte % (Auto) 0 % Neutrophils (%) (Auto) 60 42-75 % Lymphocytes (%) (Auto) 22 12-44 % Monocytes (%) (Auto) 12 0-12 % Eosinophils (%) (Auto) 6 0-10 % Basophils (%) (Auto) 1 0-10 % Neutrophils # (Auto) 5.3 1.8-7.8 10^3/uL Lymphocytes # (Auto) 1.9 1.0-4.0 10^3/uL Monocytes # (Auto) 1.0 0.0-1.0 10^3/uL Eosinophils # (Auto) 0.5 H 0.0-0.3 10^3/uL Basophils # (Auto) 0.1 0.0-0.1 10^3/uL Immature Granulocyte # (Auto) 0.0 0.0-0.1 10^3/uL Prothrombin Time 12.5 12.2-14.7 SEC INR Comment 0.9 0.8-1.4 Activated Partial Thromboplast Time 29 24-35 SEC D-Dimer 0.30 0.00-0.49 UG/ML Sodium Level 137 135-145 MMOL/L Potassium Level 4.4 3.6-5.0 MMOL/L Chloride Level 104 98-107 MMOL/L Carbon Dioxide Level 22 21-32 MMOL/L Anion Gap 11 5-14 MMOL/L Blood Urea Nitrogen 9 7-18 MG/DL Creatinine 0.68 0.60-1.30 MG/DL Estimat Glomerular Filtration Rate 95 BUN/Creatinine Ratio 13 Glucose Level 67 L 70-105 MG/DL Lactic Acid Level 1.15 0.50-2.00 MMOL/L Calcium Level 9.8 8.5-10.1 MG/DL Corrected Calcium 9.6 8.5-10.1 MG/DL Total Bilirubin 0.3 0.1-1.0 MG/DL Aspartate Amino Transf (AST/SGOT) 25 5-34 U/L Alanine Aminotransferase (ALT/SGPT) 21 0-55 U/L Alkaline Phosphatase 63 40-136 U/L Troponin I < 0.30 <0.30 NG/ML C-Reactive Protein 2.24 H <0.50 MG/DL Total Protein 7.5 6.4-8.2 GM/DL Albumin 4.2 3.2-4.5 GM/DL Lipase 11 8-78 U/L Urine Color YELLOW Urine Clarity CLOUDY Urine pH 6.5 5-9 Urine Specific [place] 1.015 L 1.016-1.022 Urine Protein TRACE H NEGATIVE Urine Glucose (UA) NEGATIVE NEGATIVE Urine Ketones NEGATIVE NEGATIVE Urine Nitrite NEGATIVE NEGATIVE Urine Bilirubin NEGATIVE NEGATIVE Urine Urobilinogen 0.2 < = 1.0 MG/DL Urine Leukocyte Esterase 2+ H NEGATIVE Urine RBC (Auto) NEGATIVE NEGATIVE Urine RBC NONE /HPF Urine WBC 50-100 H /HPF Urine Squamous Epithelial Cells 5-10 /HPF Urine Crystals NONE /LPF Urine Bacteria LARGE H /HPF Urine Casts NONE /LPF Urine Mucus SMALL H /LPF Urine Culture Indicated YES My Orders Orders - CHILO GILL MD Monitor-Rhythm Ecg Trace Only (12/04/21 22:58) Ed Iv/Invasive Line Start (12/04/21 22:58) Cbc With Automated Diff (12/04/21 22:58) Comprehensive Metabolic Panel (12/04/21 22:58) Crp Fs (12/04/21 22:58) Troponin I Fs (12/04/21 22:58) Protime With Inr (12/04/21 22:58) Partial Thromboplastin Time (12/04/21 22:58) Ekg Tracing (12/04/21 22:58) Ns Iv 1000 Ml (Sodium Chloride 0.9%) (12/04/21 23:00) Fibrin Degradation Products (12/04/21 22:58) Blood Culture (12/04/21 22:58) Lipase (12/04/21 22:58) Ua Culture If Indicated (12/04/21 22:58) Lactic Acid Analyzer (12/04/21 22:58) Ct Chest W (12/04/21 22:58) Albuterol Inhaler (Albuterol) (12/04/21 23:02) Iohexol Injection (Omnipaque 350 Mg/Ml 1 (12/04/21 23:15) Received Contrast (Hold Metformin- Contr (12/04/21 23:15) Sodium Chloride Flush (Catheter Flush Sy (12/04/21 23:15) Ns (Ivpb) (Sodium Chloride 0.9% Ivpb Bag (12/04/21 23:15) Urine Culture (12/05/21 00:05) Ceftriaxone 1 Gm Pre-Mix (Rocephin 1 Gm (12/05/21 00:38) Promethazine/ Codeine Syrup (Phenergan W (12/05/21 00:38) Dexamethasone Injection (Decadron Inje (12/05/21 00:51) Medications Given in ED Current Medications Medications Dose Ordered Sig/Santiago Route Start Time Stop Time Status Last Admin Dose Admin Iohexol 100 ml ONCE ONCE IV 12/04/21 23:15 12/04/21 23:21 DC 12/05/21 00:27 75 ML Sodium Chloride 10 ml NEEDED PRN IV 12/04/21 23:15 12/05/21 00:27 10 ML Sodium Chloride 100 ml ONCE ONCE IV 12/04/21 23:15 12/04/21 23:21 DC 12/05/21 00:27 80 ML Vital Signs/I&O 12/04/21 22:43 Temp 37.0 Pulse 106 Resp 20 B/P (MAP) 149/91 (110) Pulse Ox 96 O2 Delivery Room Air Capillary Refill : Progress Note #1: Progress Note Check labs, ECG for her complaint of chest pain from coughing, with her complaint of hemoptysis will obtain coags and Ddimer but also order CT chest with contrast. Give 1 L NS IVF for hydration, Albuterol inhaler with spacer for her cough. Since she just had Influenza and Covid test that were negative from Urgent Care on 12/03 will defer repeating that for now Progress Note #2: Progress Note Labs are stable without acute significant abnormality other than mild elevation of her CRP. She has a negative lactic acid. Her white blood cell count is not elevated. Her urinalysis did show signs of UTI. Patient reports that she just finished a course of Bactrim for UTI but did feel like it was back again. The CT chest with contrast to evaluate her complaint of hemoptysis does not show any acute process. Give a single steroid dose here to try and help with cough and congestion. Sent with the inhaler and spacer. Counseled that her sugars will be elevated while the steroid is in her system but her insulin pump should be able to manage the fluctuation. The cough may be more from allergies and an infection but if there is some start of an infection then the antibiotic to cover her urine should also help cover her respiratory tract. Try dose of Phenergan with codeine for her cough. Rocephin 1 g IV was given for her urinary tract infection and for her cough. Discharged on Phenergan with codeine and doxycycline. Counseled on follow-up and return precautions. ECG Initial ECG Impression Date: Dec 04, 2021 Initial ECG Impression Time: 23:11 Initial ECG Rate: 88 Initial ECG Rhythm: Normal Sinus Initial ECG Comparisson: No Previous ECG Available Comment Normal sinus rhythm with a heart rate of 88 bpm. [place] interval [address] elevation. QT interval 365 ms with a QTc interval 442 ms. Appears similar to prior tracing in the system from 2019 Diagnostic Imaging Diagonstic Imaging: CT Plain Films/CT/US/NM/MRI: chest Comments Impression: No acute intrathoracic findings. Read by radiologist Dr. Traci Lechuga MD at 0040 and faxed at 0042 Reviewed: Reviewed [place] Study, Reviewed by Me Departure Impression Primary Impression: Upper respiratory infection with cough and congestion Additional Impressions: Hemoptysis Post-tussive emesis Cystitis without hematuria Disposition: 01 HOME, SELF-CARE Condition: Stable Departure-Patient Inst. Decision time for Depature: 00:52 Referrals: HANK PAUL MD (PCP/Family) Primary Care Physician Patient Instructions: Cough, Adult ED, How to Use a Metered Dose Inhaler ED, How to Use a Spacer, Upper Respiratory Infection ED, Urinary Tract Infection, Adult ED Add. Discharge Instructions: Take the full course of antibiotics to treat for urine infection and respiratory infection. Use Mucinex or Mucinex DM to help with cough and congestion. You could try the Phenergan with Codeine to see about helping with your cough, especially at night when you are trying to rest. Use the inhaler with spacer to help with cough and shortness of breath. 2 puffs with spacer every 4 hours as needed for shortness of breath, cough, wheezing. Check with clinic if not improving or having continued problems. Scripts Promethazine HCl/Codeine (Promethazine-Codeine Solution) 473 Ml Syrup 5 ML PO Q4H PRN for COUGH for 4 Days, #120 ML 0 Refills Prov: CHILO GILL MD 12/05/21 Doxycycline Hyclate (Doxycycline Hyclate) 100 Mg Tablet 100 MG PO BID for UTI/Cough for 10 Days, #20 TAB 0 Refills Prov: CHILO GILL MD 12/05/21 CHILO GILL MD Dec 04, 2021 23:09
[2021-12-04] MEDS ORDERED: HOLD METFORMIN - RECEIVED CONTRAST 20 ML VIAL IV SCH (23:15)
[2021-12-04] MEDS ORDERED: CATHETER FLUSH 10 ML SYR IV PRN (23:15)
[2021-12-04] MEDS ORDERED: NS 100 ML (IVPB) BAG IV ONE (23:15)
[2021-12-04] MEDS ORDERED: IOHEXOL 350 MG/ML 150 ML (OMNIPAQUE 350) VIAL IV ONE (23:15)
[2021-12-04 23:44] LABS: BASOPHILS # (AUTO) 0.1 10^3/uL (0.0-0.1); BASOPHILS % (AUTO) 1 % (0-10); EOSINOPHILS # (AUTO) 0.5 10^3/uL (0.0-0.3); EOSINOPHILS % (AUTO) 6 % (0-10); HEMATOCRIT 34 % (35-52); HEMOGLOBIN 11.3 g/dL (11.5-16.0); LYMPHOCYTES # (AUTO) 1.9 10^3/uL (1.0-4.0); LYMPHOCYTES % (AUTO) 22 % (12-44); MEAN CORPUSCULAR HEMOGLOBIN 31 pg (25-34); MEAN CORPUSCULAR HGB CONC 34 g/dL (32-36); MEAN CORPUSCULAR VOLUME 93 fL (80-99); MEAN PLATELET VOLUME 9.6 fL (9.0-12.2); MONOCYTES % (AUTO) 12 % (0-12); NEUTROPHILS # (AUTO) 5.3 10^3/uL (1.8-7.8); NEUTROPHILS % (AUTO) 60 % (42-75); PLATELET COUNT 219 10^3/uL (130-400); WHITE BLOOD COUNT 8.8 10^3/uL (4.3-11.0)
[2021-12-04 23:47] LABS: INR 0.9 (0.8-1.4); PROTHROMBIN TIME PATIENT 12.5 SEC (12.2-14.7)
[2021-12-04 23:59] LABS: BILIRUBIN,TOTAL 0.3 MG/DL (0.1-1.0); BUN/CREATININE RATIO 13; CALCIUM 9.8 MG/DL (8.5-10.1); CARBON DIOXIDE 22 MMOL/L (21-32); CHLORIDE 104 MMOL/L (98-107); CREATININE SERUM 0.68 MG/DL (0.60-1.30); GFR ESTIMATED 95; GLUCOSE 67 MG/DL (70-105); POTASSIUM 4.4 MMOL/L (3.6-5.0); SODIUM 137 MMOL/L (135-145)
[2021-12-05] LABS: ALANINE AMINOTRANSFERASE 21 U/L (0-55); ALBUMIN 4.2 GM/DL (3.2-4.5); ALKALINE PHOSPHATASE 63 U/L (40-136); TOTAL PROTEIN 7.5 GM/DL (6.4-8.2)
[2021-12-05 00:15] LABS: BILIRUBIN,URINE NEGATIVE (NEGATIVE); CLARITY,URINE CLOUDY; COLOR,URINE YELLOW; GLUCOSE, URINE (UA) NEGATIVE (NEGATIVE); KETONES,URINE NEGATIVE (NEGATIVE); LEUKOCYTE ESTERASE ,URINE 2+ (NEGATIVE); NITRITE,URINE NEGATIVE (NEGATIVE); PH,URINE 6.5 (5-9); PROTEIN,URINE TRACE (NEGATIVE)
[2021-12-05 00:21] LABS: BACTERIA,URINE LARGE /HPF; WBC,URINE 50-100 /HPF
[2021-12-05] MEDS ORDERED: PROMETHAZINE/ CODEINE SYRUP 5 ML UDC PO STA (00:38)
[2021-12-05] MEDS ORDERED: cefTRIAXone 1 GM PRE-MIX 50 ML IV STA (00:38)
[2021-12-05] MEDS ORDERED: DOXY100T2 PO (00:55)
[2021-12-05] MEDS ORDERED: PROM473S9 PO (00:57)
[2021-12-05 01:20] VITALS: BP 142/54
--- NOTE | 2021-12-05 07:09 | Diagnostic Imaging Report ---
PROCEDURE: CT chest with contrast only. TECHNIQUE: Multiple contiguous axial images were obtained through the chest after administration of intravenous contrast. Auto Exposure Controls were utilized during the CT exam to meet ALARA standards for radiation dose reduction. INDICATION: 66-year-old female, cough, hemoptysis. CORRELATION: None FINDINGS: A few shotty mediastinal as well as bilateral axillary lymph nodes. Slight nodularity about the thyroid gland. Heart size mildly enlarged. No pericardial effusion. Dense calcification of the mitral valve. The lung sifuentes are clear of infiltrate. No significant pleural effusion. The visualized portions of the upper abdomen are unremarkable. The visualized osseous structures demonstrate no acute findings. IMPRESSION: Negative for acute abnormality of the chest. Initial report was provided by [employer]. Dictated by: Dictated on workstation # [id number]
== END 2021-12-05 01:20 | disposition home or self-care (01) ==
LOC: EDUNIT# 22:40 → ER FS 22:41
DX: J06.9 Acute upper respiratory infection, unspecified (principal); R09.81 Nasal congestion; R04.2 Hemoptysis; R11.10 Vomiting, unspecified; N30.90 Cystitis, unspecified without hematuria; E66.9 Obesity, unspecified; Z68.41 Body mass index [BMI] 40.0-44.9, adult; Z87.891 Personal history of nicotine dependence
CPT/HCPCS: 36415; 71260; 80053; 81000; 83605; 83690; 84484; 85025; 85379; 85610; 85730; 86141; 87040; 87077; 87088; 93005; 94640; Q9967

== ENCOUNTER 2022-07-12 05:06 | Emergency (ER) | payer MEDICARE ==
[~2022-07-12 05:06] MED LIST changes: +DOXY100T2 PO; +PROM473S9 PO
[2022-07-12] MEDS ORDERED: ACETAMINOPHEN 500 MG TAB (TYLENOL) PO ONE (05:15)
--- NOTE | 2022-07-12 05:19 | ED Fall/Injury ---
General Chief Complaint: Trauma-Non Activation Stated Complaint: FALL Source: patient Exam Limitations: no limitations History of Present Illness Date Seen by Provider: Jul 12, 2022 Time Seen by Provider: 05:08 Initial Comments 67-year-old female presenting via private vehicle after she fell at home. She was walking bathroom around 2 AM and tripped landing forward. Does not believe she hit her head, did not pass out, remembers all of the events. It took her roughly 2 hours to crawl to her phone to call an ambulance. They assisted her in getting up and offered to bring her here, but she refused at that time. Since then she has been ambulating, but is having lower neck, mid back, and lower back pain. Denies any weakness, numbness, significant headache, vision changes, and does not take any blood thinners. She feels like her knees feel like they have a rug burn from crawling, but does not feel any significant extremity injury. She is otherwise denying any other acute complaint. Allergies and Home Medications Allergies Coded Allergies: ciprofloxacin (Unverified Adverse Reaction, Unknown, 06/19/19) Patient Home Medication List Home Medication List Reviewed: Yes Doxycycline Hyclate (Doxycycline Hyclate) 100 Mg Tablet, 100 MG PO BID Prescribed by: CHILO GILL on 12/05/2154 Promethazine HCl/Codeine (Promethazine-Codeine Solution) 473 Ml Syrup, 5 ML PO Q4H PRN for COUGH Prescribed by: CHILO GILL on 12/05/2157 Review of Systems Review of Systems Constitutional: No fever Eyes: No Symptoms Reported Ears, Nose, Mouth, Throat: no symptoms reported Respiratory: no symptoms reported Cardiovascular: no symptoms reported Gastrointestinal: no symptoms reported Genitourinary: no symptoms reported Musculoskeletal: back pain Skin: no symptoms reported Psychiatric/Neurological: No Symptoms Reported All Other Systems Reviewed Negative Unless Noted: Yes Past Hhnitim-Syiffv-Mfboal Hx Patient Social History Tobacco Use?: No Use of E-Cig and/or Vaping dev: No Substance use?: No Alcohol Use?: No Pt feels they are or have been: No Immunizations Up To Date Tetanus Booster (TDap): Unknown First/Initial COVID19 Vaccinat: DECEMBER 2020 Second COVID19 Vaccination Kirk: JANUARY 2021 Third COVID19 Vaccination Date: ? 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 oz. kg; 44.00 BMI Method: General Appearance: WD/WN, no apparent distress HEENT: PERRL/EOMI, normal ENT inspection, pharynx normal Neck: non-tender, full range of motion, supple, normal inspection Cardiovascular: regular rate, rhythm, no edema, no murmur Respiratory: chest non-tender, lungs clear, normal breath sounds, no respiratory distress, no accessory muscle use Gastrointestinal: normal bowel sounds, non tender, soft; No distended, No gua rding, No rebound Back: normal inspection, no CVA tenderness, other (paravertebral tenderness around C5, T10, and L4) Extremities: normal range of motion, non-tender, normal inspection, no pedal edema, no calf tenderness, normal capillary refill, other (superficial abrasions to knees with no bone tenderness) Neurologic/Psychiatric: no motor/sensory deficits, alert, normal mood/affect, oriented x 3 Skin: normal color, warm/dry Lymphatic: no adenopathy Юлия Coma Score Best Eye Response: (4) Open Spontaneously Best Verbal Response: (5) Oriented Best Motor Response: (6) Obeys Commands Progress/Results/Core Measures Results/Orders My Orders Orders - JOSE CURRIE MD Ct Head/Cervical Spine Wo (07/12/22 05:13) Ct Thoracic/Lumbar Spine Wo (07/12/22 05:13) Acetaminophen Tablet (Tylenol Tablet) (07/12/22 05:15) Medications Given in ED Current Medications Medications Dose Ordered Sig/Santiago Route Start Time Stop Time Status Last Admin Dose Admin Acetaminophen 1,000 mg ONCE ONCE PO 07/12/22 05:15 07/12/22 05:16 DC 07/12/22 05:22 1,000 MG Vital Signs/I&O 07/12/22 07/12/22 07/12/22 05:06 05:06 06:52 Pulse 104 104 104 Resp 18 18 18 B/P (MAP) 153/70 (97) 153/70 (97) 153/70 Pulse Ox 96 96 96 O2 Delivery Room Air Room Air Progress Progress Note : Progress Note 67-year-old female with above history coming in after tripping and falling. ABCs were intact and vitals were stable on presentation. Physical exam with some paravertebral tenderness but no neuro exam findings that would be concerning. No true bony tenderness anywhere. Moving all extremities without difficulty and GCS is 15. CT head, cervical spine, thoracic spine, lumbar spine ordered. Given Tylenol for pain. CT imaging negative for acute findings. Patient discharged home in stable condition with strict return precautions Of note, the CT head and cervical spine were dictated other copy of the thoracic and lumbar spine dictation. Our resident physician in radiology called Dr. Rivera personally, and he verbalized that the CT head and C-spine were negative for acute findings. Diagnostic Imaging Diagonstic Imaging: CT (head/c spine/ T and L spine) Comments [facility], [place] NAME: REI [facility]DERA [facility] REC#: [id number] PT STATUS: REG ER : 1955 PHYSICIAN: JOSE CURRIE MD ADMIT DATE: 07/12/22/ER FS Draft Date of Exam:07/12/22 CT THORACIC/LUMBAR SPINE WO PROCEDURE: CT thoracic and lumbar spine without contrast. TECHNIQUE: Multiple contiguous axial images were obtained through the thoracic and lumbar spine without the use of intravenous contrast. Sagittal and coronal reformations were then performed. All CT scans use one or more of the following dose optimizing techniques: automated exposure control, MA and/or KvP adjustment based on a patient size and exam type, or iterative reconstruction. INDICATION: Fall results in spinal pain. I have no relevant comparison. FINDINGS: T-spine: Thoracic statures are within normal limits. No acute or subacute appearing endplate irregularity. There is mid thoracic spondylosis and facet arthrosis but no substantial degree of canal stenosis. No thoracic spinal fracture, traumatic malalignment or evidence for paraspinal hemorrhage. The visualized posterior rib segments appeared intact. Lumbar spine: Lumbar vertebral body heights within normal limits. The alignment anatomic. The pedicles and pars intact. No acute or chronic fracture. Degenerative changes greatest at the L4-L5 level where there is mild canal and bi-foraminal stenosis on a chronic degenerative basis. No lumbar spinal fracture, traumatic malalignment or paraspinal hemorrhage. Partially visualized sacrum and SI joints nonacute. There is aortic atherosclerosis without aneurysm. IMPRESSION: No acute or posttraumatic abnormality identified within the thoracic or lumbar spine. Dictated on workstation # [id number] Dict: 07/12/22 0553 Trans: 07/12/22 0606 [facility] [id number] Interpreted by: RENETTA RIVERA Electronically signed by: Departure Impression Primary Impression: Fall from ground level Additional Impression: Back pain Qualified Codes: M54.9 - Dorsalgia, unspecified Disposition: 01 HOME, SELF-CARE Condition: Stable Departure-Patient Inst. Decision time for Depature: 06:55 Referrals: BEREKET COKER ANNA K APRN (PCP) Primary Care Physician Patient Instructions: Preventing Falls ED Add. Discharge Instructions: Take Tylenol as needed for pain. You can also try heating pad or ice at home. Follow-up with your regular doctor if things are not improving. I recommend talking to your doctor about ordering physical therapy to help with your walking and fall prevention since you have fallen multiple times over the past couple of years. Follow up with Mike Coker if the pain is not improving. JOSE CURRIE MD Jul 12, 2022 05:19
--- NOTE | 2022-07-12 06:07 | Diagnostic Imaging Report ---
PROCEDURE: CT thoracic and lumbar spine without contrast. TECHNIQUE: Multiple contiguous axial images were obtained through the thoracic and lumbar spine without the use of intravenous contrast. Sagittal and coronal reformations were then performed. All CT scans use one or more of the following dose optimizing techniques: automated exposure control, MA and/or KvP adjustment based on a patient size and exam type, or iterative reconstruction. INDICATION: Fall results in spinal pain. I have no relevant comparison. FINDINGS: T-spine: Thoracic statures are within normal limits. No acute or subacute appearing endplate irregularity. There is mid thoracic spondylosis and facet arthrosis but no substantial degree of canal stenosis. No thoracic spinal fracture, traumatic malalignment or evidence for paraspinal hemorrhage. The visualized posterior rib segments appeared intact. Lumbar spine: Lumbar vertebral body heights within normal limits. The alignment anatomic. The pedicles and pars intact. No acute or chronic fracture. Degenerative changes greatest at the L4-L5 level where there is mild canal and bi-foraminal stenosis on a chronic degenerative basis. No lumbar spinal fracture, traumatic malalignment or paraspinal hemorrhage. Partially visualized sacrum and SI joints nonacute. There is aortic atherosclerosis without aneurysm. IMPRESSION: No acute or posttraumatic abnormality identified within the thoracic or lumbar spine. Dictated by: Dictated on workstation # [id number]
[2022-07-12 06:52] VITALS: BP 153/70
--- NOTE | 2022-07-12 06:55 | Diagnostic Imaging Report ---
PROCEDURE: CT head and CT cervical spine without contrast. TECHNIQUE: Multiple contiguous axial images were obtained through the brain and cervical spine without the use of intravenous contrast. Sagittal and coronal reformations through the cervical spine were then performed. Auto Exposure Controls were utilized during the CT exam to meet ALARA standards for radiation dose reduction. INDICATION: Fall, neck and back pain. The exam compared cervical CT 01/15/[address] 06/19/2019. FINDINGS: CT HEAD: There has been mild increase in generalized cerebral cortical atrophy. There is mild patchy periventricular and subcortical white matter changes chronic and not substantially changed. There is no hemorrhage. There is no acute extra-axial fluid collection. There was no calvarial fracture deformity. There is no hemo-sinus. No findings suggestive of cerebral edema or elevated intracerebral pressures. No mass or mass effect. Cervical spine: Degenerative changes to the [id number] cervical spine chronic. The alignment is stable and normal. The vertebral statures normal. No cervical spinal fracture or paravertebral hemorrhage. The craniocervical relationship appeared unremarkable. Central skull base intact. No fracture apparent. IMPRESSION: Head CT showed mild progressive atrophy but no hemorrhage, edema, or acute finding. Cervical CT shows stable chronic degenerative changes with no fracture or traumatic malalignment. Dictated by: Dictated on workstation # [id number]
== END 2022-07-12 07:02 | disposition home or self-care (01) ==
LOC: EDUNIT# 05:06 → ER FS 05:08
DX: M54.50 Low back pain, unspecified (principal); M54.6 Pain in thoracic spine; M54.2 Cervicalgia; S80.212A Abrasion, left knee, initial encounter; S80.211A Abrasion, right knee, initial encounter; Z28.310 Unvaccinated for COVID-19; W01.0XXA Fall on same level from slipping, tripping and stumbling without subsequent striking against object, initial encounter; Y93.01 Activity, walking, marching and hiking; Y92.091 Bathroom in other non-institutional residence as the place of occurrence of the external cause
CPT/HCPCS: 70450; 72125; 72128; 72131